=== PATIENT | female | born 1925 | race Caucasian/White ===

== ENCOUNTER → 2016-07-30 | Outpatient (CLI) | payer MEDICARE | END | disposition home or self-care (01) | LOC: EDBD → PCVCIMAG 15:24 | PROVIDERS: ATTEND Internal Medicine | DX: I70.212 Atherosclerosis of native arteries of extremities with intermittent claudication, left leg (principal); M79.672 Pain in left foot; M79.671 Pain in right foot | CPT/HCPCS: 93925 ==

== ENCOUNTER → 2016-08-04 | Outpatient (CLI) | payer MEDICARE | END | disposition home or self-care (01) | LOC: PCVCCLINIC 15:49 | PROVIDERS: ATTEND Nuclear Medicine Nuclear Cardiology | DX: I73.9 Peripheral vascular disease, unspecified (principal); I10 Essential (primary) hypertension; C73 Malignant neoplasm of thyroid gland | CPT/HCPCS: G0463 ==